=== PATIENT | female | born 1950 | race Caucasian/White ===

== ENCOUNTER 2017-05-01 18:58 | Emergency (ER) | payer OTHER, MEDICAID ==
[~2017-05-01] VITALS: Ht 154.9 cm; Wt 55.3 kg
[2017-05-01 19:03] VITALS: BP 175/77
--- NOTE | 2017-05-01 19:20 | NUR ---
PT PLACED IN BED 3 BY EMS.
[2017-05-01 19:43] VITALS: BP 91/58
--- NOTE | 2017-05-01 20:09 | NUR ---
Patient being evaluated by Dr. Albright at bedside.
--- NOTE | 2017-05-01 20:17 | NUR ---
X-Ray at bedside.
--- NOTE | 2017-05-01 20:20 | NUR ---
67Y/F BIBA FOR G TUBE REPLACEMENT. PER EMS PT IS FROM [facility], NEEDS GTUBE REPLACEMENT. [facility]. PT ARRIVES TO ER W/O GTUBE IN PLACE, THERE IS SMALL INCISION TO LEFT SIDE OF ABDOMEN, NO BLEEDING NOTED BROWNISH DISCHARGE NOTED. VSS. PT IN BED SIDE RAILS UP X2.
--- NOTE | 2017-05-01 20:25 | NUR ---
WAS CALLED TO ER BY NURSING STAFF AT 1905 TO ATTEND TO A VENT DEPENDENT PATIENT WHO CAME FROM ANOTHER FACILITY. THE SETTINGS ARE FOLLOWS. AC 12 500 PEEP OF 5 45%. O2 SATURATION WAS 98% ON THOSE SETTINGS. PATIENT CAME IN FOR A NEW G-TUBE. PATIENT HEART RATE WAS 89BPM. I WAS SUCTIONING THICK MODERATE AMOUNT OF BROWN SECRETIONS. PATIENT IS IN NO DISTRESS.
--- NOTE | 2017-05-01 20:47 | NUR ---
SPOKE WITH OTTO FROM [facility] TO SET UP TRANSFER FOR CCT UNIT. UNIT IS COMING FROM [facility], 30-45 MNS ETA.
--- NOTE | 2017-05-01 21:09 | NUR ---
REPORT CALLED TO [facility], TO HILDA FLORES 20-30 MIN.
--- NOTE | 2017-05-01 21:39 | NUR ---
CALLED PT FAMILY, SPOKE TO HER FAMILY/SANTANA THAT PT'S GOING BACK TO [facility]
[2017-05-01 21:52] VITALS: BP 111/65
--- NOTE | 2017-05-01 21:53 | NUR ---
Patient discharged with v/s stable. Written and verbal after care instructions given and explained. Patient verbalized understanding. Ambulance Transport with to [facility]. All questions addressed prior to discharge. Advised to follow up with PMD.
== END 2017-05-01 21:53 ==
LOC: MED 18:58
DX: K94.23 Gastrostomy malfunction (principal); J96.10 Chronic respiratory failure, unspecified whether with hypoxia or hypercapnia; D64.9 Anemia, unspecified; Z88.8 Allergy status to other drugs, medicaments and biological substances
CPT/HCPCS: 43760; 74241; 99284; Q0092